=== PATIENT | male | born 1985 | race American Indian/Alaskan Native ===

== ENCOUNTER 2017-08-17 10:31 | Emergency (ER) | payer SELFPAY ==
[2017-08-17 10:52] VITALS: BP 152/122
[2017-08-17] MEDS ORDERED: ASPIRIN PO ONE (10:52)
[2017-08-17 11:22] LABS: Basophils % (Auto) 0.5 % (0.0-1.8); Eosinophils # (Auto) 0.1 K/mm3 (0.0-0.4); Eosinophils % (Auto) 1.1 % (0.0-4.3); Hematocrit 43.1 % (35.5-45.6); Hemoglobin 14.1 gm/dl (11.8-15.2); Lymphocytes # (Auto) 1.3 K/mm3 (1.2-5.4); Lymphocytes % (Auto) 18.8 % (13.4-35.0); Mean Corpuscular HGB Conc 33 % (32-34); Mean Corpuscular Hemoglobin 27 pg (28-32); Mean Corpuscular Volume 82 fl (84-94); Monocytes # (Auto) 0.7 K/mm3 (0.0-0.8); Monocytes % (Auto) 9.9 % (0.0-7.3); Platelet Count 181 K/mm3 (140-440); Red Blood Count 5.27 M/mm3 (3.65-5.03)
[2017-08-17 11:37] LABS: INR 0.87 (0.87-1.13)
[2017-08-17 11:38] LABS: Partial Thromboplastin Time 27.5 Sec. (24.2-36.6)
[2017-08-17 11:43] LABS: BUN/Creatinine Ratio 13; Blood Urea Nitrogen 13 mg/dL (9-20); Calcium 9.4 mg/dL (8.4-10.2); Hemolysis Index 11
== END 2017-08-17 13:10 | disposition left against medical advice (07) ==
LOC: ED 10:31
DX: R07.9 Chest pain, unspecified (principal); Z53.21 Procedure and treatment not carried out due to patient leaving prior to being seen by health care provider
CPT/HCPCS: 36415; 80048; 84484; 85025; 85610; 85730; 93005; 93010